=== PATIENT | female | born 1965 | race Caucasian/White ===

== ENCOUNTER 2022-07-26 14:59 | Emergency (ER) | payer SELFPAY ==
[~2022-07-26 14:59] MED LIST: Iopamidol 300 61% 100 ML VIAL FS ONE
[2022-07-26 16:08] LABS: #Basophils 0.1 10x3/uL (0.0-0.2); #Eosinphils 0.1 10x3/uL (0.0-0.5); #Monocytes 0.4 10x3/uL (0.0-1.1); #Neutrophils 6.2 10x3/uL (1.5-8.4); %Basophils 0.9 % (0.0-2.0); %Eosinophils 0.6 % (0.0-6.0); %Lymphocytes 15.1 % (18.0-47.0); %Monocytes 5.5 % (0.0-10.0); %Neutrophils 77.5 % (40.0-75.0); Hemoglobin 13.3 g/dL (12.0-15.5); Mean Corpuscular HGB CONC 36.2 g/dL (32.0-36.0); Mean Corpuscular Hemoglobin 38.9 pg (27.0-33.0); Mean Corpuscular Volume 107.3 fl (81.6-98.3); Mean Platelet Volume 10.6 fl (7.4-10.4); Platelet Count 355 10x3/uL (150-450); RBC Distribution Width 11.9 % (11.5-14.5); Red Blood Cell (RBC) Count 3.42 10x6/uL (3.90-5.03)
[2022-07-26] MEDS ORDERED: Ondansetron PF 4 MG/2 ML Vial ONE (16:11)
[2022-07-26 16:19] LABS: ALT (SGPT) 41 U/L (8-55); AST (SGOT) 75 U/L (5-34); Albumin 3.4 g/dL (3.5-5.0); Alkaline Phosphatase 199 U/L (40-110); Anion Gap 20 mmol/L (10-20); BUN (Urea Nitrogen) 9 mg/dL (9.8-20.1); Bilirubin, Total 2.4 mg/dL (0.2-1.2); Calc. Creatinine Clearance 0 mL/min (70-130); Calcium 8.8 mg/dL (7.8-10.44); Carbon Dioxide 20 mmol/L (22-29); Chloride 98 mmol/L (98-107); Estimated GFR 67; Globulin 3.5 g/dL (2.4-3.5); Glucose 148 mg/dL (70-105); Lipase 9 U/L (8-78); Magnesium 1.7 mg/dL (1.6-2.6); Potassium 2.8 mmol/L (3.5-5.1); Protein, Total 6.9 g/dL (6.0-8.3); Sodium 135 mmol/L (136-145)
[2022-07-26 16:38] LABS: Large Platelets SLIGHT
[2022-07-26 16:43] LABS: Macrocytosis SLIGHT = 6-15 cells (100X) (0-5/hpf)
[2022-07-26 16:46] LABS: Stomatocytes MODERATE= 6-15 cells (100X) (0-1/hpf)
[2022-07-26] MEDS ORDERED: Potassium Chloride 20 MEQ TAB ONE (16:55)
[2022-07-26] MEDS ORDERED: Potassium Chloride 20 MEQ/100 ML PREMIX BAG ONE (16:55)
== END 2022-07-26 19:27 | disposition home or self-care (01) ==
LOC: CSHERS 14:59
DX: K52.9 Noninfective gastroenteritis and colitis, unspecified (principal); R10.10 Upper abdominal pain, unspecified; I10 Essential (primary) hypertension; J44.9 Chronic obstructive pulmonary disease, unspecified; F17.210 Nicotine dependence, cigarettes, uncomplicated
CPT/HCPCS: 71045; 74177; 80053; 83690; 83735; 84484; 85025; 93005; 96361; 96365; 96366; 96375; J2405; J3480; Q9967

== ENCOUNTER 2025-05-15 10:30 | Emergency (ER) | payer OTHER | END 2025-05-15 13:52 | disposition home or self-care (01) | LOC: CSHERS 10:30 | DX: S16.1XXA Strain of muscle, fascia and tendon at neck level, initial encounter (principal); M76.61 Achilles tendinitis, right leg; I10 Essential (primary) hypertension; J44.9 Chronic obstructive pulmonary disease, unspecified; M79.7 Fibromyalgia; F17.210 Nicotine dependence, cigarettes, uncomplicated; X58.XXXA Exposure to other specified factors, initial encounter | CPT/HCPCS: 99283 ==